=== PATIENT | female | born 1995 | race Two or more races ===

== ENCOUNTER 2017-07-21 12:47 | Emergency (ER) | payer MEDICAID ==
[~2017-07-21] VITALS: Ht 154.9 cm; Wt 62.0 kg
[2017-07-21] MEDS ORDERED: IBUPROFEN 800MG TABLET PO ONE (15:45)
[2017-07-21] MEDS ORDERED: ACETAMINOPHEN WITH CODEINE 300/30MG TABLET PO ONE (15:45)
[2017-07-21 15:46] VITALS: BP 110/70
== END 2017-07-21 18:18 | disposition home or self-care (01) ==
LOC: ER 16:22
DX: R09.1 Pleurisy (principal); F12.10 Cannabis abuse, uncomplicated; J45.909 Unspecified asthma, uncomplicated
CPT/HCPCS: 71010; 81025; 99283

== ENCOUNTER 2017-11-21 08:27 | Emergency (ER) | payer MEDICAID, OTHER ==
[~2017-11-21] VITALS: Ht 154.9 cm; Wt 58.0 kg
[2017-11-21 08:52] VITALS: BP 121/69
== END 2017-11-21 16:19 | disposition left against medical advice (07) ==
LOC: ER 09:00
DX: Z53.21 Procedure and treatment not carried out due to patient leaving prior to being seen by health care provider (principal)